=== PATIENT | male | born 1955 | race Caucasian/White ===

== ENCOUNTER 2023-04-26 19:52 | Emergency (ER) | payer OTHER, BC ==
[~2023-04-26] VITALS: Ht 170.2 cm; Wt 81.6 kg
[2023-04-26 20:00] VITALS: BP_SYST 135; PULSE 116; RESP 20; TEMP 97.1; O2SAT 96
[2023-04-26] MEDS ORDERED: CEPH-548 PO (22:44)
[2023-04-26] MEDS ORDERED: IBUP-1969 PO (22:44)
[2023-04-26] MEDS ORDERED: DIPHTH,PERTUSS(ACELL),TET VAC 0.5 ML VIAL (Tdap) I.M. ONE (22:45)
[2023-04-26] MEDS ORDERED: ceFAZolin SODIUM 2 GM VIAL IM ONE (22:45)
[2023-04-26] MEDS ORDERED: ceFAZolin SODIUM 1 GM VIAL ONE (22:49)
[2023-04-26 23:12] VITALS: BP_SYST 135; PULSE 90; RESP 20; TEMP 97.1; O2SAT 96
== END 2023-04-26 23:12 | disposition home or self-care (01) ==
LOC: SED 19:52
DX: S62.616A Displaced fracture of proximal phalanx of right little finger, initial encounter for closed fracture (principal); S61.411A Laceration without foreign body of right hand, initial encounter; Z79.899 Other long term (current) drug therapy; W21.03XA Struck by baseball, initial encounter; Y93.64 Activity, baseball; Y92.89 Other specified places as the place of occurrence of the external cause; Y99.8 Other external cause status
CPT/HCPCS: 99284; 26725; 73130; 90715; 90471; 96372; 12001; 73140; J0690